=== PATIENT | male | born 1960 | race Caucasian/White ===

== ENCOUNTER 2018-10-04 18:27 | Inpatient (IN) | payer BC, OTHER ==
[~2018-10-04] VITALS: Ht 175.3 cm; Wt 142.4 kg
[~2018-10-04 18:27] MED LIST: LISI5TAB7 PO
[2018-10-04] MEDS ORDERED: SODIUM CHLORIDE 0.9% 1,000ML IVBOLUS ONE (19:00)
[2018-10-04] MEDS ORDERED: SODIUM CHLORIDE FLUSH 10ML SYR IVF ONE (19:00)
[2018-10-04] MEDS ORDERED: ONDANSETRON 2MG/ML, 2ML IVPush ONE (19:00)
[2018-10-04] MEDS ORDERED: ONDANSETRON 2MG/ML, 2ML ONE (19:01)
[2018-10-04 19:16] LABS: MEAN CORPUSCULAR HGB CONC 34.6 g/dL (33.2-36.2); MEAN CORPUSCULAR VOLUME 98.3 fL (81-97); MEAN PLATELET VOLUME 10.4 fL (7.4-10.4); PLATELET COUNT 148 x10^3/uL (130-400); RED BLOOD COUNT 4.66 x10^6/uL (4.38-5.82); RED CELL DISTRIBUTION WIDTH 14.1 % (9.4-14.8)
[2018-10-04] MEDS ORDERED: ASPI-650 PO (19:18)
[2018-10-04] MEDS ORDERED: METH500T98 PO (19:18)
[2018-10-04] MEDS ORDERED: humira (19:18)
[2018-10-04] MEDS ORDERED: FLUT1AER INH (19:18)
[2018-10-04] MEDS ORDERED: TRIA1CAP3 PO (19:18)
[2018-10-04] MEDS ORDERED: probiotic (19:18)
[2018-10-04] MEDS ORDERED: LISI-167 PO (19:18)
[2018-10-04] MEDS ORDERED: methotrexate (19:18)
[2018-10-04] MEDS ORDERED: FLEC100T PO (19:18)
[2018-10-04] MEDS ORDERED: OMEP-110 PO (19:18)
[2018-10-04] MEDS ORDERED: SERT50TA5 PO (19:18)
[2018-10-04] MEDS ORDERED: FOLI-17 PO (19:18)
[2018-10-04] MEDS ORDERED: ATOR-2 PO (19:18)
[2018-10-04 19:20] LABS: MICROSCOPIC NOT IND
[2018-10-04 19:25] LABS: MD YES
[2018-10-04 19:28] LABS: ALANINE AMINOTRANSFERASE 30 U/L (12-78); ANION GAP 9 mmol/L (5-15); CHLORIDE 108 mmol/L (98-107); CREATININE 0.91 mg/dL (0.7-1.3)
[2018-10-04 19:28] LABS: CULTURE INDICATED? NO
[2018-10-04 19:30] LABS: ALKALINE PHOSPHATASE 102 U/L (45-117); BILIRUBIN,TOTAL 0.8 mg/dL (0.2-1.0); TOTAL PROTEIN 7.6 g/dL (6.4-8.2)
[2018-10-04] MEDS ORDERED: CEFTRIAXONE IV SCH (19:30)
[2018-10-04] MEDS ORDERED: CEFTRIAXONE PMX 1GM/50ML 50 ML ONE (19:30)
[2018-10-04] MEDS ORDERED: CEFTRIAXONE PMX 1GM/50ML 50 ML IV ONE (19:30)
[2018-10-04 19:47] LABS: BAND#(MANUAL) 1.06 x10^3/uL; BANDS%(MANUAL) 5 % (0-7); LYMPH#(MANUAL) 1.06 x10^3/uL (1-3.4); LYMPHS% (MANUAL) 5 % (22-44); MONOS#(MANUAL) 1.06 x10^3/uL (0.3-2.7); MONOS% (MANUAL) 5 % (2-9); SEG#(MANUAL) 18.02 x10^3/uL (1.8-6.8); SEGS% (MANUAL) 85 % (42-75)
[2018-10-04 19:48] LABS: <RBC MORPHOLOGY> NORMAL
[2018-10-04 19:49] LABS: <PLATELET ESTIMATE> ADEQUATE; <PLT MORPHOLOGY> NORMAL PLT MORPH
[2018-10-04] MEDS ORDERED: ACETAMINOPHEN 500 MG TABLET ONE (20:13)
[2018-10-04] MEDS ORDERED: MORPHINE SULFATE 4 MG/ML, 1ML ONE (20:13)
[2018-10-04] MEDS ORDERED: MORPHINE SULFATE 4 MG/ML, 1ML IVPush PRN (20:30)
[2018-10-04] MEDS ORDERED: ACETAMINOPHEN 500 MG TABLET PO ONE (20:30)
[2018-10-04] MEDS ORDERED: OMNIPAQUE 350 MG/ML, 100ML BOTTLE ONE (20:57)
[2018-10-04] MEDS ORDERED: FUROSEMIDE 40 MG/4 ML ONE (21:27)
[2018-10-04] MEDS ORDERED: BACITRACIN ZINC OINT 500U/GM, 0.9 GM ONE (21:27)
[2018-10-04 22:11] LABS: RAPID INFLUENZA A Negative (Negative); RAPID INFLUENZA B Negative (Negative)
[2018-10-04] MEDS ORDERED: ONDANSETRON 2MG/ML, 2ML IVPush PRN (23:00)
[2018-10-04] MEDS ORDERED: POLYETHYLENE GLYCOL 17 GM PACKET PO PRN (23:00)
[2018-10-04] MEDS ORDERED: METOCLOPRAMIDE 5 MG/ML, 2ML IVPush PRN (23:00)
[2018-10-05] MEDS ORDERED: BUDESONIDE 0.5 MG/2 ML INHA NPPB SCH (00:30)
[2018-10-05] MEDS ORDERED: ALBUTEROL SULFATE 2.5 MG/3 ML NPPB SCH (00:30)
[2018-10-05] MEDS: SODIUM CHLORIDE 0.9% 1,000 ML IV SCH ×2 (00:34→07:30)
[2018-10-05] MEDS: ENOXAPARIN 40 MG/0.4 ML SQ SCH ×2 (00:35→20:55)
[2018-10-05] MEDS: ACETAMINOPHEN 500 MG TABLET PO PRN ×3 (00:35→17:28)
[2018-10-05 01:15] VITALS: BP 144/71
[2018-10-05 05:29] LABS: MEAN CORPUSCULAR HEMOGLOBIN 33.9 pg (27.5-34.5); MEAN CORPUSCULAR HGB CONC 34.3 g/dL (33.2-36.2); MEAN CORPUSCULAR VOLUME 98.9 fL (81-97); MEAN PLATELET VOLUME 10.4 fL (7.4-10.4); PLATELET COUNT 123 x10^3/uL (130-400); RED BLOOD COUNT 4.25 x10^6/uL (4.38-5.82); RED CELL DISTRIBUTION WIDTH 14.5 % (9.4-14.8)
[2018-10-05 05:46] LABS: ALANINE AMINOTRANSFERASE 36 U/L (12-78); ALBUMIN 3.2 g/dL (3.4-5.0); ANION GAP 8 mmol/L (5-15); CALCIUM 8.1 mg/dL (8.5-10.1); CHLORIDE 110 mmol/L (98-107); CREATININE 0.83 mg/dL (0.7-1.3)
[2018-10-05 05:49] LABS: ALKALINE PHOSPHATASE 82 U/L (45-117); BILIRUBIN,TOTAL 0.9 mg/dL (0.2-1.0); TOTAL PROTEIN 6.7 g/dL (6.4-8.2)
[2018-10-05 05:56] LABS: BASOPHILS # (AUTO) 0.01 x10^3/uL (0-0.1); BASOPHILS % (AUTO) 0 % (0-1); EOSINOPHILS % (AUTO) 0 % (1-7); LYMPHOCYTES # (AUTO) 0.46 x10^3/uL (1-3.4); LYMPHOCYTES % (AUTO) 3 % (22-44); MD SCAN; MONOCYTES # (AUTO) 0.74 x10^3/uL (0.2-0.8); MONOCYTES % (AUTO) 4 % (2-9); NEUTROPHILS # (AUTO) 16.88 x10^3/uL (1.8-6.8); NEUTROPHILS % (AUTO) 93 % (42-75)
[2018-10-05 07:25] VITALS: BP 159/79
[2018-10-05] MEDS: OMEPRAZOLE 20 MG CAPSULE.DR PO SCH (08:40)
[2018-10-05] MEDS: LISINOPRIL 20 MG TABLET PO SCH (08:41)
[2018-10-05] MEDS: ASPIRIN 325 MG TABLET EC PO SCH (08:41)
[2018-10-05] MEDS: SERTRALINE 50MG TABLET PO SCH (08:41)
[2018-10-05] MEDS: FOLIC ACID 1 MG TABLET PO SCH (08:41)
[2018-10-05] MEDS ORDERED: POLYETHYLENE GLYCOL 17 GM PACKET NG ONE (09:00)
[2018-10-05] MEDS ORDERED: FLUTICASONE/VILANTEROL 100-25MCG/INH INH SCH (09:00)
[2018-10-05] MEDS ORDERED: AZITHROMYCIN 500 MG TABLET PO ONE (09:00)
[2018-10-05] MEDS: DOCUSATE 100 MG CAPSULE PO SCH (10:30)
[2018-10-05] MEDS: NS + 20MEQ KCL 1,000 ML IV SCH ×2 (11:29→20:52)
[2018-10-05] MEDS ORDERED: CEFTRIAXONE PMX 2GM/50ML 50 ML IV SCH (12:30)
[2018-10-05] MEDS: PIPERACILLIN/TAZO/PMX 4.5GM 100 ML IV SCH ×2 (13:15→19:58)
[2018-10-05 14:10] VITALS: BP 155/76
[2018-10-05 15:54] LABS: MICROSCOPIC INDICATED
[2018-10-05 15:55] LABS: CULTURE INDICATED? NO
[2018-10-05 18:14] VITALS: BP 137/65
[2018-10-05] MEDS ORDERED: CALCIUM CARBONATE 500 MG TAB.CHEW PO PRN (18:30)
[2018-10-05 18:56] VITALS: BP 150/70
[2018-10-05] MEDS: ATORVASTATIN 40 MG TABLET PO SCH (20:52)
[2018-10-06 02:00] VITALS: BP 168/73
[2018-10-06] MEDS: PIPERACILLIN/TAZO/PMX 4.5GM 100 ML IV SCH ×4 (02:24→19:34)
[2018-10-06] MEDS: ACETAMINOPHEN 500 MG TABLET PO PRN ×2 (03:20→08:10)
[2018-10-06 05:17] LABS: MEAN CORPUSCULAR HEMOGLOBIN 33.5 pg (27.5-34.5); MEAN CORPUSCULAR HGB CONC 34.1 g/dL (33.2-36.2); MEAN CORPUSCULAR VOLUME 98.3 fL (81-97); RED BLOOD COUNT 3.97 x10^6/uL (4.38-5.82); RED CELL DISTRIBUTION WIDTH 13.8 % (9.4-14.8)
[2018-10-06 05:23] LABS: ANION GAP 6 mmol/L (5-15); CHLORIDE 109 mmol/L (98-107)
[2018-10-06 05:24] LABS: CREATININE 0.92 mg/dL (0.7-1.3)
[2018-10-06 06:19] LABS: BASOPHILS % (AUTO) 0 % (0-1); EOSINOPHILS % (AUTO) 0 % (1-7); LYMPHOCYTES # (AUTO) 0.77 x10^3/uL (1-3.4); LYMPHOCYTES % (AUTO) 12 % (22-44); MD SCAN; MEAN PLATELET VOLUME 10.7 fL (7.4-10.4); MONOCYTES # (AUTO) 0.67 x10^3/uL (0.2-0.8); MONOCYTES % (AUTO) 11 % (2-9); NEUTROPHILS # (AUTO) 4.95 x10^3/uL (1.8-6.8); NEUTROPHILS % (AUTO) 77 % (42-75); PLATELET COUNT 97 x10^3/uL (130-400)
[2018-10-06 07:34] VITALS: BP 169/72
[2018-10-06] MEDS: DOCUSATE 100 MG CAPSULE PO SCH (07:41)
[2018-10-06] MEDS: SERTRALINE 50MG TABLET PO SCH (08:10)
[2018-10-06] MEDS: FOLIC ACID 1 MG TABLET PO SCH (08:10)
[2018-10-06] MEDS: ASPIRIN 325 MG TABLET EC PO SCH (08:10)
[2018-10-06] MEDS: LISINOPRIL 20 MG TABLET PO SCH (08:10)
[2018-10-06] MEDS: OMEPRAZOLE 20 MG CAPSULE.DR PO SCH (08:10)
[2018-10-06] MEDS ORDERED: KETOROLAC 30 MG/1 ML IM PRN (10:00)
[2018-10-06] MEDS: NS + 20MEQ KCL 1,000 ML IV SCH ×2 (10:35→21:26)
[2018-10-06] MEDS: CALCIUM CARBONATE 500 MG TAB.CHEW PO PRN ×2 (13:30→17:50)
[2018-10-06 17:35] VITALS: BP 166/88
[2018-10-06] MEDS: ACETAMINOPHEN 325 MG TABLET PO PRN (19:34)
[2018-10-06 19:45] VITALS: BP 163/77
[2018-10-06 20:00] VITALS: BP 185/84
[2018-10-06] MEDS: ATORVASTATIN 40 MG TABLET PO SCH (21:25)
[2018-10-07] MEDS: PIPERACILLIN/TAZO/PMX 4.5GM 100 ML IV SCH ×4 (01:22→19:58)
[2018-10-07] MEDS: ENOXAPARIN 40 MG/0.4 ML SQ SCH (01:23)
[2018-10-07 02:00] VITALS: BP 173/74
[2018-10-07 05:37] LABS: ANION GAP 8 mmol/L (5-15); CHLORIDE 109 mmol/L (98-107); CREATININE 0.76 mg/dL (0.7-1.3)
[2018-10-07 06:14] LABS: MEAN CORPUSCULAR HEMOGLOBIN 33.7 pg (27.5-34.5); MEAN CORPUSCULAR HGB CONC 34.1 g/dL (33.2-36.2); MEAN CORPUSCULAR VOLUME 98.9 fL (81-97); MEAN PLATELET VOLUME 11.4 fL (7.4-10.4); PLATELET COUNT 89 x10^3/uL (130-400); RED BLOOD COUNT 3.94 x10^6/uL (4.38-5.82)
[2018-10-07 06:15] LABS: BASOPHILS # (AUTO) 0.03 x10^3/uL (0-0.1); BASOPHILS % (AUTO) 1 % (0-1); EOSINOPHILS % (AUTO) 0 % (1-7); LYMPHOCYTES # (AUTO) 0.97 x10^3/uL (1-3.4); LYMPHOCYTES % (AUTO) 19 % (22-44); MONOCYTES # (AUTO) 0.54 x10^3/uL (0.2-0.8); MONOCYTES % (AUTO) 11 % (2-9); NEUTROPHILS # (AUTO) 3.46 x10^3/uL (1.8-6.8); NEUTROPHILS % (AUTO) 69 % (42-75)
[2018-10-07 06:35] LABS: MD SCAN
[2018-10-07 07:00] VITALS: BP 189/94
[2018-10-07] MEDS ORDERED: ENALAPRILAT 1.25 MG/ML, 2ML IV PRN (07:30)
[2018-10-07] MEDS ORDERED: hydrALAzine 20 MG/ML, 1ML IV PRN (07:30)
[2018-10-07] MEDS: DOCUSATE 100 MG CAPSULE PO SCH (07:32)
[2018-10-07] MEDS: ACETAMINOPHEN 325 MG TABLET PO PRN (07:57)
[2018-10-07] MEDS: AMLODIPINE 5 MG TABLET PO SCH (07:57)
[2018-10-07] MEDS: OMEPRAZOLE 20 MG CAPSULE.DR PO SCH (07:58)
[2018-10-07] MEDS: FOLIC ACID 1 MG TABLET PO SCH (07:58)
[2018-10-07] MEDS: LISINOPRIL 20 MG TABLET PO SCH (07:58)
[2018-10-07] MEDS: ASPIRIN 325 MG TABLET EC PO SCH (07:58)
[2018-10-07] MEDS: SERTRALINE 50MG TABLET PO SCH (09:33)
[2018-10-07] MEDS: CALCIUM CARBONATE 500 MG TAB.CHEW PO PRN ×3 (09:33→17:19)
[2018-10-07] MEDS: LACTOBACILLUS CHEW TABLET PO SCH ×3 (13:35→19:58)
[2018-10-07] MEDS: POTASSIUM CHLORIDE 20 MEQ TAB.ER.PRT PO SCH (13:35)
[2018-10-07 13:58] VITALS: BP 169/73
[2018-10-07] MEDS: ATORVASTATIN 40 MG TABLET PO SCH (19:58)
[2018-10-07 20:00] VITALS: BP 172/72
[2018-10-08 01:23] VITALS: BP 162/76
[2018-10-08] MEDS: ENOXAPARIN 40 MG/0.4 ML SQ SCH (01:38)
[2018-10-08] MEDS: PIPERACILLIN/TAZO/PMX 4.5GM 100 ML IV SCH ×2 (01:38→08:07)
[2018-10-08 05:59] LABS: CHLORIDE 107 mmol/L (98-107)
[2018-10-08 06:00] LABS: ANION GAP 9 mmol/L (5-15); CALCIUM 8.4 mg/dL (8.5-10.1); CREATININE 0.76 mg/dL (0.7-1.3)
[2018-10-08 08:08] VITALS: BP 163/87
[2018-10-08] MEDS: POTASSIUM CHLORIDE 20 MEQ TAB.ER.PRT PO SCH (08:37)
[2018-10-08] MEDS: DOCUSATE 100 MG CAPSULE PO SCH (08:37)
[2018-10-08] MEDS: AMLODIPINE 5 MG TABLET PO SCH (08:38)
[2018-10-08] MEDS: ASPIRIN 325 MG TABLET EC PO SCH (08:38)
[2018-10-08] MEDS: LACTOBACILLUS CHEW TABLET PO SCH (08:38)
[2018-10-08] MEDS: OMEPRAZOLE 20 MG CAPSULE.DR PO SCH (08:38)
[2018-10-08] MEDS: FOLIC ACID 1 MG TABLET PO SCH (08:38)
[2018-10-08] MEDS: LISINOPRIL 20 MG TABLET PO SCH (08:39)
[2018-10-08] MEDS: SERTRALINE 50MG TABLET PO SCH (08:39)
[2018-10-08] MEDS ORDERED: POTA20TA6 PO (09:43)
[2018-10-08] MEDS ORDERED: CEFD300C37 PO ×2 (09:43)
[2018-10-08] MEDS ORDERED: AMLO5TAB7 PO (09:43)
[2018-10-08] MEDS ORDERED: AMOX1TAB64 PO (11:21)
== END 2018-10-08 13:18 | disposition home or self-care (01) | DRG 872 ==
LOC: ED 21:57 → EDIP 22:24 → 3NE 23:40 → DCLOUNGE 10-08 12:55
PROVIDERS: ADMIT Hospitalist; ATTEND Hospitalist
PROC: 5A09357 Assistance with Respiratory Ventilation, Less than 24 Consecutive Hours, Continuous Positive Airway Pressure (ICD-10-PCS; principal; 2018-10-08)
DX: A41.9 Sepsis, unspecified organism (principal); K57.32 Diverticulitis of large intestine without perforation or abscess without bleeding; Z68.42 Body mass index [BMI] 45.0-49.9, adult; B96.20 Unspecified Escherichia coli [E. coli] as the cause of diseases classified elsewhere; E66.01 Morbid (severe) obesity due to excess calories; E78.5 Hyperlipidemia, unspecified; E86.0 Dehydration; F12.90 Cannabis use, unspecified, uncomplicated; E87.6 Hypokalemia; F32.9 Major depressive disorder, single episode, unspecified; G47.33 Obstructive sleep apnea (adult) (pediatric); K21.9 Gastro-esophageal reflux disease without esophagitis; I48.91 Unspecified atrial fibrillation; M19.90 Unspecified osteoarthritis, unspecified site; I10 Essential (primary) hypertension; K59.00 Constipation, unspecified; M06.9 Rheumatoid arthritis, unspecified; Z79.899 Other long term (current) drug therapy; Z88.8 Allergy status to other drugs, medicaments and biological substances
CPT/HCPCS: 36415; 71045; 74177; 80048; 80053; 81001; 81003; 83605; 83690; 83735; 84100; 84145; 85025; 87040; 87077; 87186; 87400; 93005; 94660; 99285; G0378; J0696; J1650; J2405; J2543; J3480; Q9967; J7030

== ENCOUNTER 2019-12-06 08:35 | Emergency (ER) | payer BC ==
[~2019-12-06] VITALS: Ht 175.3 cm; Wt 138.2 kg
[~2019-12-06 08:35] MED LIST changes: +AMLO-150 PO; +AMOX1TAB64 PO; +ASPI-650 PO; +ATOR-2 PO; +CEFD300C37 PO; +FLEC100T PO; +FLUT1AER INH; +FOLI-17 PO; +LISI-167 PO; +METH500T98 PO; +OMEP-110 PO; +POTA20TA6 PO; +SERT50TA28 PO; +TRIA1CAP3 PO; +humira; +methotrexate; +probiotic
--- NOTE | 2019-12-06 09:20 | NUR ---
pt presents to ED with c/o right sided jaw pain and facial swelling x 2 days. no edema or erythema is appreciable at this time. pt has hx afib, and RA on immune suppressive therapy. pt's HR is upper 40's, pt states this is baseline as he is on anti-arrhythmics. pt denies CP. pt attached to bp and spo2 monitors. med student at bedside at this time.
--- NOTE | 2019-12-06 09:50 | NUR ---
[employer] at bedside.
[2019-12-06 10:28] VITALS: BP 147/71
--- NOTE | 2019-12-06 10:29 | NUR ---
orders for dc received. pt given dc instructions and script, educated regarding rx for naproxen. pt a&o, resps even and unlabored. nadn. pt amb to dc desk with steady gait, all questions answered.
== END 2019-12-06 10:30 | disposition home or self-care (01) ==
LOC: ED 10:24
DX: R68.84 Jaw pain (principal); H92.01 Otalgia, right ear; I10 Essential (primary) hypertension; I48.91 Unspecified atrial fibrillation
CPT/HCPCS: 99283